=== PATIENT | male | born 1995 | race African-American/Black ===

== ENCOUNTER 2022-06-01 07:17 | Inpatient (IN) | payer OTHER ==
[~2022-06-01] VITALS: Ht 172.7 cm; Wt 81.6 kg
[2022-06-01] MEDS ORDERED: OLANZAPINE 10 MG/VIAL IM ONE (07:45)
[2022-06-01] MEDS: LORAZEPAM 2MG/ML CPJ IM PRN (08:04)
[2022-06-01 09:24] LABS: CHLORIDE 102 mEq/L (98-107)
[2022-06-01 09:32] LABS: BASOPHILS % 0.3 % (0.0-2.0); EOSINOPHILS % 0.2 % (0.0-5.0); HEMOGLOBIN. 12.3 g/dL (14.0-18.0); LYMPHOCYTES % 8.5 % (20.0-50.0); MEAN CORPUSCULAR HEMOGLOBIN 32.1 pg (28.0-32.0); MEAN CORPUSCULAR VOLUME 94.2 fL (80.0-94.0); MEAN PLATELET VOLUME 7.2 fl (7.4-10.4); MONOCYTES % 13.1 % (2.0-8.0); NEUTROPHILS % 77.9 % (40.0-76.0); PLATELET 415 x1000/uL (130-400); RED BLOOD CELL COUNT 3.82 mill/uL (4.7-6.1); RED CELL DISTRIBUTION WIDTH 14.2 % (11.6-14.6)
[2022-06-01 09:33] LABS: ETHANOL BLOOD < 10 mg/dL
[2022-06-01 09:36] LABS: CLARITY URINE CLEAR (CLEAR); COLOR URINE DARK YELLOW (YELLOW); KETONES URINE 1+ (NEGATIVE); LEUKOCYTE ESTERASE URINE NEGATIVE (NEGATIVE); NITRITE URINE NEGATIVE (NEGATIVE); OCCULT BLOOD URINE NEGATIVE (NEGATIVE); PROTEIN URINE 1+ (NEGATIVE); SPECIFIC GRAVITY URINE 1.028 (1.005-1.030)
[2022-06-01 10:34] LABS: *AMPHETAMINES SCREEN URINE PRESUMTIVE POSITIVE (NEGATIVE); *BARBITURATES SCREEN URINE NEGATIVE (NEGATIVE); *BENZODIAZEPINES SCREEN URINE NEGATIVE (NEGATIVE); *COCAINE SCREEN URINE NEGATIVE (NEGATIVE); CANNABINOID URINE SCREEN PRESUMTIVE POSITIVE (NEGATIVE); METHADONE URINE SCREEN NEGATIVE (NEGATIVE); OPIATES URINE SCREEN NEGATIVE (NEGATIVE); PHENCYCLIDINE URINE SCREEN NEGATIVE (NEGATIVE)
[2022-06-01] MEDS ORDERED: MIDAZOLAM HCL 2 MG/2 ML VIAL IM ONE ×2 (16:15→18:00)
[2022-06-01] MEDS ORDERED: HALOPERIDOL LACTATE 5MG/ML VIAL IM ONE (20:45)
[2022-06-01] MEDS ORDERED: LORAZEPAM 2MG/ML CPJ IM ONE (20:45)
[2022-06-01] MEDS ORDERED: SODIUM CHLORIDE 0.9% 1,000 ML IV ONE (22:30)
[2022-06-01] MEDS ORDERED: SODIUM CHLORIDE 0.9% 1000ML BAG (SEPSIS BOLUS) IV ONE (23:15)
[2022-06-01] MEDS ORDERED: LORAZEPAM 2MG/ML CPJ IV ONE (23:15)
[2022-06-02] MEDS ORDERED: DIPHENHYDRAMINE 50MG/ML VIAL IV ONE (00:30)
[2022-06-02] MEDS ORDERED: LORAZEPAM 2MG/ML CPJ IV ONE ×2 (01:45→02:30)
[2022-06-02 03:14] LABS: CREATINE KINASE 1970 IU/L (39-308)
[2022-06-02] MEDS ORDERED: KETOROLAC 15MG/ML VIAL IV PRN (11:00)
[2022-06-02] MEDS ORDERED: GUAIFENESIN 200MG/10ML SUGAR FREE UDC PO PRN (11:00)
[2022-06-02] MEDS ORDERED: NA PHOS,M-B/NA PHOS,DI-BA ENEMA 118ML PR PRN (11:00)
[2022-06-02] MEDS ORDERED: ALBUTEROL (0.083%) 2.5MG/3ML NEB HHN PRN (11:00)
[2022-06-02] MEDS ORDERED: IPRATROPIUM/ALBUTEROL 0.5-3(2.5)MG/3ML NEB NEB PRN (11:00)
[2022-06-02] MEDS ORDERED: IPRATROPIUM BROMIDE (0.02%) 0.5MG/2.5ML NEB HHN PRN (11:00)
[2022-06-02] MEDS ORDERED: DOCUSATE SODIUM 100MG CAPSULE PO PRN (11:00)
[2022-06-02] MEDS ORDERED: CLONIDINE 0.1MG TABLET PO PRN (11:00)
[2022-06-02] MEDS ORDERED: ZOLPIDEM TARTRATE 5MG TABLET PO PRN (11:00)
[2022-06-02] MEDS ORDERED: NITROGLYCERIN 0.4MG TABLET SL SL PRN (11:00)
[2022-06-02] MEDS ORDERED: MAGNESIUM/ALUMINUM HYDROXIDE/SIMETHICONE 30ML UDC PO PRN (11:00)
[2022-06-02] MEDS ORDERED: ONDANSETRON HCL 4MG/2ML INJ IV PRN (11:00)
[2022-06-02] MEDS ORDERED: ACETAMINOPHEN 325MG TABLET PO PRN (11:00)
[2022-06-02] MEDS ORDERED: KCL 20MEQ/100ML PREMIX 100 ML IV NR (11:45)
[2022-06-02] MEDS ORDERED: MVI, ADULT NO.1 10 ML, FOLIC ACID 1 MG, THIAMINE HCL 100 MG in SODIUM CHLORIDE 0.9% 1,0... IV SCH ×4 (12:00)
[2022-06-02 12:50] VITALS: BP 113/73
[2022-06-02 14:19] VITALS: BP 113/73
[2022-06-02] MEDS: ENOXAPARIN 40MG/0.4ML SYR SUBCUT SCH (14:38)
[2022-06-02 16:00] VITALS: BP 138/64
[2022-06-02] MEDS ORDERED: DILTIAZEM HCL 5MG/ML 5ML VIAL IV NR (17:15)
[2022-06-02] MEDS: ACETAMINOPHEN 325MG TABLET PO PRN (17:21)
[2022-06-02] MEDS ORDERED: LORAZEPAM 2MG/ML CPJ IV NR (17:30)
[2022-06-02] MEDS: FAMOTIDINE 20MG TABLET PO SCH (21:00)
[2022-06-03] MEDS: LORAZEPAM 2MG/ML CPJ IM PRN ×2 (05:32→12:14)
[2022-06-03] MEDS: FAMOTIDINE 20MG TABLET PO SCH ×2 (09:00→21:00)
[2022-06-03] MEDS ORDERED: DIPHENHYDRAMINE 50MG/ML VIAL IM NR (11:45)
[2022-06-03] MEDS ORDERED: HALOPERIDOL LACTATE 5MG/ML VIAL IM NR (11:45)
[2022-06-03] MEDS: ENOXAPARIN 40MG/0.4ML SYR SUBCUT SCH (12:15)
[2022-06-03] MEDS ORDERED: LORAZEPAM 2MG/ML CPJ IM PRN (12:15)
[2022-06-03] MEDS ORDERED: OLANZAPINE 5MG TABLET ODT PO PRN (12:15)
[2022-06-03 20:00] VITALS: BP 122/68
[2022-06-04] VITALS: BP 127/77
[2022-06-04 04:00] VITALS: BP 108/78
[2022-06-04 08:33] VITALS: BP 129/65
[2022-06-04] MEDS: FAMOTIDINE 20MG TABLET PO SCH ×3 (09:00→20:38)
[2022-06-04] MEDS: ENOXAPARIN 40MG/0.4ML SYR SUBCUT SCH (11:00)
[2022-06-04 12:00] VITALS: BP 117/66
[2022-06-04] MEDS ORDERED: DIPHENHYDRAMINE 50MG/ML VIAL IM PRN (14:30)
[2022-06-04] MEDS ORDERED: HALOPERIDOL LACTATE 5MG/ML VIAL IM NR (14:30)
[2022-06-04] MEDS: OLANZAPINE 5MG TABLET ODT PO SCH ×2 (14:35→20:37)
[2022-06-04 20:00] VITALS: BP 94/74
[2022-06-05] MEDS ORDERED: HALOPERIDOL LACTATE 5MG/ML VIAL IM PRN (09:30)
[2022-06-05] MEDS: FAMOTIDINE 20MG TABLET PO SCH (09:58)
[2022-06-05] MEDS: OLANZAPINE 5MG TABLET ODT PO SCH (09:59)
[2022-06-05] MEDS: ENOXAPARIN 40MG/0.4ML SYR SUBCUT SCH (11:00)
[2022-06-05] MEDS: ACETAMINOPHEN 325MG TABLET PO PRN (12:52)
== END 2022-06-05 14:58 | disposition left against medical advice (07) | DRG 93 ==
LOC: ER 07:17 → EDBD 06-02 05:05 → 7EST 06-02 05:05 → ENRESERV 06-02 11:08
PROVIDERS: ADMIT Internal Medicine; ATTEND Internal Medicine
DX: G92.8 Other toxic encephalopathy (principal); E87.6 Hypokalemia; F19.10 Other psychoactive substance abuse, uncomplicated; Z20.822 Contact with and (suspected) exposure to COVID-19; F41.9 Anxiety disorder, unspecified; R45.1 Restlessness and agitation
CPT/HCPCS: 36415; 80053; 80305; 80320; 81003; 82550; 83605; 83880; 84484; 85025; 87426; 93005; 99291; C9803; J1200; J1630; J1650; J2060; J2250; J3411; J3480; J3490; J7030; G0480